=== PATIENT | male | born 1955 | race Hispanic/Latino ===

== ENCOUNTER 2018-07-28 13:43 | Emergency (ER) | payer OTHER ==
--- NOTE | 2018-07-28 15:04 | CT ---
CT HEAD WITHOUT CONTRAST: 07/28/2018 HISTORY: Trauma. Pain. Injury. COMPARISON: None. TECHNIQUE: Axial CT imaging at 5 mm intervals, from the vertex through the skull base, without contrast. FINDINGS: Old fractures of the medial orbital wall on the left and the nasal bone on the right are noted. The imaged paranasal sinuses/mastoid air cells demonstrate probable chronic opacification of the left eth moid air cells, secondary to prior left medial orbital wall fracture. No acute displaced calvarial fracture. No intracranial hemorrhage, midline shift, or mass effect. IMPRESSION: No displaced calvarial fracture or evidence of intracranial hemorrhage. POS: [facility]
--- NOTE | 2018-07-28 15:05 | CT ---
CT CERVICAL SPINE WITH CORONAL AND SAGITTAL REFORMATIONS: HISTORY: Fall. Neck pain. FINDINGS: Mild degenerative changes are present. No fracture or subluxation is identified. No facet malalignm ent is seen. POS: [facility]
--- NOTE | 2018-07-28 15:06 | RAD ---
LEFT KNEE FOUR VIEWS: HISTORY: Fall. Left knee pain. FINDINGS: Degenerative changes are present. No acute fracture or dislocation is identified. There is fullness in the suprapatellar pouch, suspicious for joint effusion. POS: [facility]
== END 2018-07-28 16:03 ==
LOC: ERS 13:43
DX: S09.90XA Unspecified injury of head, initial encounter (principal); S80.212A Abrasion, left knee, initial encounter; I10 Essential (primary) hypertension; Z79.899 Other long term (current) drug therapy; W01.0XXA Fall on same level from slipping, tripping and stumbling without subsequent striking against object, initial encounter; Y92.149 Unspecified place in prison as the place of occurrence of the external cause
CPT/HCPCS: 70450; 72125